=== PATIENT | female | born 1990 | race Two or more races ===

== ENCOUNTER 2017-05-04 02:45 | Emergency (ER) | payer MEDICAID ==
[~2017-05-04] VITALS: Ht 152.4 cm; Wt 52.2 kg
[~2017-05-04 02:45] MED LIST: HYDR25T PO
[2017-05-04 02:51] VITALS: BP 115/62
== END 2017-05-04 08:31 | disposition left against medical advice (07) ==
LOC: ER 02:46
DX: M54.5 Low back pain (principal); Z53.21 Procedure and treatment not carried out due to patient leaving prior to being seen by health care provider

== ENCOUNTER 2023-07-19 19:33 | Emergency (ER) | payer MEDICAID, OTHER | END 2023-07-19 20:38 | disposition left against medical advice (07) | LOC: ER 19:33 | DX: M79.641 Pain in right hand (principal); Z53.21 Procedure and treatment not carried out due to patient leaving prior to being seen by health care provider; W18.39XA Other fall on same level, initial encounter; Y93.89 Activity, other specified; Y92.89 Other specified places as the place of occurrence of the external cause; Y99.8 Other external cause status ==